=== PATIENT | female | born 1985 | race Two or more races ===

== ENCOUNTER 2018-04-02 09:43 | Outpatient (CLI) | payer OTHER | END 2018-04-02 09:54 | disposition home or self-care (01) | LOC: SONOGRAMA 09:43 → MAMO-SONO 09:45 → SONOGRAMA 09:54 | DX: N64.52 Nipple discharge (principal) ==

== ENCOUNTER 2019-09-15 11:13 | Outpatient (CLI) | payer OTHER ==
[~2019-09-15 11:13] MED LIST: CELEBREX200MG PO; MEDROLPACK PO; NORFLEX100MG PO
== END 2019-09-15 11:18 | disposition home or self-care (01) ==
LOC: LAB 11:13
DX: J11.1 Influenza due to unidentified influenza virus with other respiratory manifestations (principal); R51 Headache; R09.81 Nasal congestion

== ENCOUNTER 2019-09-15 11:42 | Outpatient (CLI) | payer OTHER | END 2019-09-15 11:49 | disposition home or self-care (01) | LOC: RAD 11:42 | DX: R51 Headache (principal); R09.81 Nasal congestion ==